=== PATIENT | female | born 2000 | race Caucasian/White ===

== ENCOUNTER 2021-06-09 12:36 | Emergency (ER) | payer SELFPAY ==
[~2021-06-09] VITALS: Ht 167.6 cm; Wt 52.2 kg
[2021-06-09 12:42] VITALS: BP 125/81
[2021-06-09] MEDS ORDERED: CIPR10DR RIGHT EAR (12:47)
--- NOTE | 2021-06-09 12:54 | NUR ---
Patient discharged to home in stable condition. Written and verbal after care instructions given. Patient verbalizes understanding of instruction.
== END 2021-06-09 12:54 | disposition home or self-care (01) ==
LOC: ER 12:36
DX: H60.91 Unspecified otitis externa, right ear (principal)